=== PATIENT | female | born 1950 | race African-American/Black ===

== ENCOUNTER 2019-03-03 20:36 | Emergency (ER) | payer MEDICARE, OTHER ==
[~2019-03-03] VITALS: Ht 167.6 cm; Wt 72.6 kg
[2019-03-03] MEDS ORDERED: HYDROCODONE/APAP 5-325MG TABLET PO ONE (21:00)
[2019-03-03] MEDS ORDERED: HYDROCODONE/APAP 5-325MG TABLET ONE (21:07)
[2019-03-03] MEDS ORDERED: IBUP-1957 PO (21:08)
[2019-03-03] MEDS ORDERED: MULT-213 PO (21:08)
[2019-03-03] MEDS ORDERED: QUET400T PO (21:08)
[2019-03-03 21:10] LABS: BASOPHILS % (AUTO) 0.5 % (0.0-2.0); EOSINOPHILS # (AUTO) 0.1 K/uL (0.0-0.7); EOSINOPHILS % (AUTO) 1.3 % (0.0-7.0); HEMATOCRIT 34.1 % (31.2-41.9); HEMOGLOBIN 11.6 g/dL (10.9-14.3); LYMPHOCYTES # (AUTO) 2.4 K/uL (20.0-40.0); LYMPHOCYTES % (AUTO) 47.8 % (20.5-51.5); MEAN CORPUSCULAR HEMOGLOBIN 33.1 uug (24.7-32.8); MEAN CORPUSCULAR HGB CONC 34 g/dL (32.3-35.6); MONOCYTES # (AUTO) 0.4 K/uL (2.0-10.0); MONOCYTES % (AUTO) 7.4 % (0.0-11.0); NEUTROPHILS # (AUTO) 2.2 K/uL (1.8-8.9); PLATELET COUNT (AUTO) 292 K/uL (179-408); RED BLOOD CELL COUNT(AUTO) 3.51 MIL/uL (3.63-4.92); WHITE BLOOD COUNT (AUTO) 5.1 K/uL (3.8-11.8)
[2019-03-03 21:13] LABS: CREATININE 0.7 mg/dL (0.6-1.3); POTASSIUM 4.2 mmol/L (3.5-5.1)
--- NOTE | 2019-03-03 21:41 | NUR ---
Patient to RADIOLOGY for CT via [facility].
--- NOTE | 2019-03-03 21:50 | NUR ---
Patient returned from RADIOLOGY, NAD noted.
--- NOTE | 2019-03-03 22:37 | NUR ---
Call placed to [facility] for transportation to [facility]. Trip #[id number], ETA [phone].
--- NOTE | 2019-03-03 23:40 | NUR ---
Patient discharged to home in stable conditon via ambulance. Written and verbal after care instructions given. Patient verbalizes understanding of instructions.
[2019-03-03 23:41] VITALS: BP 138/78
== END 2019-03-03 23:41 | disposition home or self-care (01) ==
LOC: ER 20:37
DX: R51 Headache (principal); M25.512 Pain in left shoulder; M79.605 Pain in left leg; Z79.1 Long term (current) use of non-steroidal anti-inflammatories (NSAID); Z79.899 Other long term (current) drug therapy
CPT/HCPCS: 36415; 70450; 85025; 85651; A4663